=== PATIENT | male | born 1935 | race Caucasian/White ===

== ENCOUNTER 2016-09-22 08:13 | Day surgery (SDC) | payer MEDICARE, BC ==
[2016-09-22 10:38] VITALS: BP 131/64; PULSE 52; RESP 18; TEMP 97.4; O2SAT 98
== END 2016-09-22 11:10 | disposition home or self-care (01) | DRG 392 ==
LOC: SURG 08:13
PROVIDERS: ATTEND Surgery
DX: K22.2 Esophageal obstruction (principal)
CPT/HCPCS: J2001

== ENCOUNTER 2016-10-19 07:32 | Day surgery (SDC) | payer MEDICARE, BC ==
[~2016-10-19 07:32] MED LIST: FENTANYL CITRATE 50 MCG/ML SOL ONE; PROPOFOL 500 MG/50 ML EMU IV ONE
[2016-10-19 09:09] VITALS: TEMP 97.5
[2016-10-19 09:50] VITALS: BP 127/58; PULSE 51; RESP 20; O2SAT 98
== END 2016-10-19 10:19 | disposition home or self-care (01) | DRG 392 ==
LOC: SURG 07:32
PROVIDERS: ATTEND Internal Medicine Gastroenterology
DX: K22.2 Esophageal obstruction (principal); B37.81 Candidal esophagitis; R13.10 Dysphagia, unspecified; K44.9 Diaphragmatic hernia without obstruction or gangrene; K31.7 Polyp of stomach and duodenum
CPT/HCPCS: J2001; J3010; J2704

== ENCOUNTER 2017-05-10 07:29 | Day surgery (SDC) | payer MEDICARE, BC ==
[~2017-05-10 07:29] MED LIST changes: -FENTANYL CITRATE 50 MCG/ML SOL ONE; +LIDOCAINE HCL 1% MPF SOL ONE
[2017-05-10 09:07] VITALS: TEMP 97.9
[2017-05-10 09:13] VITALS: O2SAT 97
[2017-05-10 09:37] VITALS: BP 137/69; PULSE 46; RESP 20
== END 2017-05-10 09:44 | disposition home or self-care (01) | DRG 392 ==
LOC: SURG 07:29
PROVIDERS: ATTEND Internal Medicine Gastroenterology
DX: K22.2 Esophageal obstruction (principal); K31.7 Polyp of stomach and duodenum; K44.9 Diaphragmatic hernia without obstruction or gangrene; K31.89 Other diseases of stomach and duodenum
CPT/HCPCS: J2001; J2704

== ENCOUNTER 2017-09-11 14:10 | Emergency (ER) | payer MEDICARE, BC ==
[2017-09-11 14:31] VITALS: RESP 20; TEMP 99.8
[2017-09-11 15:30] LABS: BASOPHILS % (AUTO) 2 % (0-3); EOSINOPHILS % (AUTO) 1 % (0-9); HEMATOCRIT 37 % (39-53); MEAN CORPUSCULAR VOLUME 93 fL (80-100); MONOCYTES % (AUTO) 14.5 % (0-12); NEUTROPHILS % (AUTO) 62.5 % (37-80)
[2017-09-11 15:38] LABS: CALCIUM 8.3 mg/dl (8.5-10.1)
[2017-09-11 16:07] VITALS: BP 121/56; PULSE 75; O2SAT 96
== END 2017-09-11 15:59 | disposition home or self-care (01) | DRG 153 ==
LOC: ED 14:10
DX: J06.9 Acute upper respiratory infection, unspecified (principal); R40.2142 Coma scale, eyes open, spontaneous, at arrival to emergency department; R53.83 Other fatigue
CPT/HCPCS: 36415; 80048; 85025; 99282; 99283

== ENCOUNTER 2018-04-01 16:00 | Emergency (ER) | payer MEDICARE, BC ==
[2018-04-01] MEDS ORDERED: ONDANSETRON HCL 4 MG/2 ML SOL ONE (16:45)
[2018-04-01] MEDS ORDERED: ONDANSETRON HCL 4 MG/2 ML SOL IV ONE (16:45)
[2018-04-01] MEDS ORDERED: SODIUM CHLORIDE 0.9% FLUSH 10 ML SOL IV PRN (17:19)
[2018-04-01 17:21] LABS: HEMATOCRIT 43 % (39-53); HEMOGLOBIN 14.5 gm/dl (13.5-17.7)
[2018-04-01 17:22] LABS: BASOPHILS % (AUTO) 1 % (0-3); EOSINOPHILS % (AUTO) 1 % (0-9); LYMPHOCYTES % (AUTO) 12.6 % (10-50); MEAN CORPUSCULAR HEMOGLOBIN 31.7 pg (27.0-32.0); MEAN CORPUSCULAR HGB CONC 33.4 gm/dl (32.0-36.0); MEAN CORPUSCULAR VOLUME 95 fL (80-100); MONOCYTES % (AUTO) 6.4 % (0-12); NEUTROPHILS % (AUTO) 79.5 % (37-80)
[2018-04-01 17:34] LABS: BLOOD UREA NITROGEN 22 mg/dl (7-18); CALCIUM 9.5 mg/dl (8.5-10.1); CARBON DIOXIDE 29.1 mEq/L (21-32); CHLORIDE 106 mMol/L (98-107); CREATININE 1.38 mg/dl (0.80-1.30); GLUCOSE 148 mg/dl (74-106); POTASSIUM 4.3 mMol/L (3.5-5.1); SODIUM 144 mMol/L (136-145)
[2018-04-01 17:35] LABS: ALBUMIN 3.9 gm/dl (3.4-5.0); ALKALINE PHOSPHATASE 158 IU/L (46-116); ALT 35 IU/L (14-63); AST 25 IU/L (15-37); BILIRUBIN,TOTAL 1.5 mg/dl (0.2-1.0); CRP INFLAMMATORY 0.32 mg/dl (0.00-0.33); LACTIC ACID 1.4 mMol/L (0.0-2.0); TOTAL PROTEIN 7.7 gm/dl (6.4-8.2); TROP I < 0.017 ng/ml (0.000-0.056)
[2018-04-01 18:30] LABS: APPEARANCE,URINE Slightly Cloudy; BILIRUBIN,URINE 1+ (NEGATIVE); COLOR,URINE Dark yellow; GLUCOSE, URINE (UA) NEGATIVE (NEGATIVE); KETONES,URINE 1+ (NEGATIVE); LEUKOCYTE ESTERASE ,URINE 1+ (NEGATIVE); NITRATE,URINE NEGATIVE (NEGATIVE); OCCULT BLOOD,URINE 1+ (NEG-TRACE); PH,URINE 5.5
[2018-04-01 18:42] LABS: BACTERIA 2+ (< 1+); CRYSTALS NEGATIVE (0-3 AVE/HPF); ICTOTEST,URINE NEGATIVE (NEGATIVE); RBC,URINE 0-2 (0-3AV/HPF)
[2018-04-01 19:33] VITALS: TEMP 97.6
[2018-04-01 19:35] VITALS: BP 135/73; PULSE 58; RESP 14; O2SAT 96
== END 2018-04-01 19:25 | disposition home or self-care (01) | DRG 392 ==
LOC: ED 16:00
DX: R10.9 Unspecified abdominal pain (principal); R82.90 Unspecified abnormal findings in urine
CPT/HCPCS: 36415; 80053; 81001; 84484; 85025; 87088; 93005; 96374; 99283; J2405

== ENCOUNTER 2018-04-04 07:34 | Day surgery (SDC) | payer MEDICARE, BC ==
[2018-04-04] MEDS ORDERED: PROPOFOL 500 MG/50 ML EMU IV ONE (07:57)
[2018-04-04 09:27] VITALS: TEMP 96.8
[2018-04-04 10:10] VITALS: BP 121/70; PULSE 51; RESP 20; O2SAT 96
== END 2018-04-04 10:10 | disposition home or self-care (01) | DRG 392 ==
LOC: SURG 07:34
PROVIDERS: ATTEND Internal Medicine Gastroenterology
DX: R13.10 Dysphagia, unspecified (principal); K22.2 Esophageal obstruction; K44.9 Diaphragmatic hernia without obstruction or gangrene; K31.7 Polyp of stomach and duodenum; L53.8 Other specified erythematous conditions; Q40.2 Other specified congenital malformations of stomach
CPT/HCPCS: J2704

== ENCOUNTER 2018-05-02 08:16 | Day surgery (SDC) | payer MEDICARE, BC ==
[2018-05-02 10:01] VITALS: TEMP 97.1
[2018-05-02 10:28] VITALS: PULSE 47; RESP 20
[2018-05-02 10:34] VITALS: BP 129/64; O2SAT 96
[2018-05-02] MEDS ORDERED: PROPOFOL 500 MG/50 ML EMU IV ONE (11:53)
[2018-05-02] MEDS ORDERED: LIDOCAINE HCL 1% MPF 30 SOL ONE (11:53)
== END 2018-05-02 10:58 | disposition home or self-care (01) | DRG 392 ==
LOC: SURG 08:16
PROVIDERS: ATTEND Internal Medicine Gastroenterology
DX: R13.10 Dysphagia, unspecified (principal); K21.9 Gastro-esophageal reflux disease without esophagitis; K22.70 Barrett's esophagus without dysplasia; K44.9 Diaphragmatic hernia without obstruction or gangrene; L53.8 Other specified erythematous conditions; K31.7 Polyp of stomach and duodenum; Q40.3 Congenital malformation of stomach, unspecified; K22.2 Esophageal obstruction
CPT/HCPCS: J2001; J2704

== ENCOUNTER 2019-01-09 08:37 | Day surgery (SDC) | payer BC, MEDICARE, OTHER ==
[~2019-01-09 08:37] MED LIST changes: +LIDOCAINE HCL 1% MPF 30 SOL ONE; -LIDOCAINE HCL 1% MPF SOL ONE
[2019-01-09 08:56] VITALS: O2SAT 98
[2019-01-09 10:50] VITALS: PULSE 48; RESP 20
[2019-01-09 10:54] VITALS: BP 131/70
[2019-01-09 10:55] VITALS: TEMP 96.6
== END 2019-01-09 11:14 | disposition home or self-care (01) | DRG 392 ==
LOC: SURG 08:37
PROVIDERS: ATTEND Internal Medicine Gastroenterology
DX: R13.10 Dysphagia, unspecified (principal); B37.81 Candidal esophagitis; K44.9 Diaphragmatic hernia without obstruction or gangrene; K22.70 Barrett's esophagus without dysplasia; K22.2 Esophageal obstruction; L53.8 Other specified erythematous conditions; Q40.2 Other specified congenital malformations of stomach; K21.0 Gastro-esophageal reflux disease with esophagitis; K31.7 Polyp of stomach and duodenum
CPT/HCPCS: 99001; J2001; J2704

== ENCOUNTER 2019-02-05 04:11 | Emergency (ER) | payer MEDICARE, BC ==
[2019-02-05 04:20] VITALS: TEMP 98.5; O2SAT 95
[2019-02-05 04:52] VITALS: RESP 20
[2019-02-05 05:24] LABS: BASOPHILS % (AUTO) 1 % (0-3); EOSINOPHILS % (AUTO) 1 % (0-9); HEMATOCRIT 38 % (39-53); LYMPHOCYTES % (AUTO) 10.2 % (10-50); MEAN CORPUSCULAR HEMOGLOBIN 31.5 pg (27.0-32.0); MEAN CORPUSCULAR HGB CONC 34.4 gm/dl (32.0-36.0); MEAN CORPUSCULAR VOLUME 92 fL (80-100); MONOCYTES % (AUTO) 7.9 % (0-12); NEUTROPHILS % (AUTO) 80.8 % (37-80)
[2019-02-05 05:27] LABS: CALCIUM 8.5 mg/dl (8.5-10.1); CARBON DIOXIDE 26.9 mEq/L (21-32); CREATININE 1.35 mg/dl (0.80-1.30); POTASSIUM 4.1 mMol/L (3.5-5.1)
[2019-02-05 05:32] LABS: INR 1.18 (0.86-1.12)
[2019-02-05 06:02] VITALS: BP 122/44; PULSE 75
== END 2019-02-05 05:55 | disposition home or self-care (01) | DRG 641 ==
LOC: ED 04:11
DX: E86.0 Dehydration (principal); W18.30XA Fall on same level, unspecified, initial encounter; R40.2362 Coma scale, best motor response, obeys commands, at arrival to emergency department; R40.2142 Coma scale, eyes open, spontaneous, at arrival to emergency department; R40.2252 Coma scale, best verbal response, oriented, at arrival to emergency department; R58 Hemorrhage, not elsewhere classified
CPT/HCPCS: 36415; 70450; 80048; 85025; 85610; 93005; 99284

== ENCOUNTER 2019-02-16 14:51 | Emergency (ER) | payer MEDICARE, BC, OTHER ==
[2019-02-16 19:16] VITALS: BP 136/63; PULSE 80; RESP 18; TEMP 97.2; O2SAT 96
== END 2019-02-16 19:38 | disposition short-term general hospital (02) | DRG 395 ==
LOC: ED 14:51
DX: T18.198A Other foreign object in esophagus causing other injury, initial encounter (principal)
CPT/HCPCS: 70490; 71046; 71250; 99283; 99284